=== PATIENT | male | born 1960 | race Caucasian/White ===

== ENCOUNTER 2020-02-21 11:13 | Emergency (ER) | payer OTHER, SELFPAY ==
[2020-02-21 11:16] VITALS: BP 134/102; PULSE 67; RESP 16; TEMP 36.3; O2SAT 100
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
== END 2020-02-21 12:32 | disposition home or self-care (01) ==
PROVIDERS: Emergency Provider Emergency Medicine; PCP Emergency Medicine
DX: M54.12 Radiculopathy, cervical region (principal)
CPT/HCPCS: 99283

== ENCOUNTER 2021-07-18 12:42 | Emergency (ER) | payer MEDICARE, MEDICAID, SELFPAY ==
--- NOTE | ~2021-07-18 | CT_ITS ---
EXAMINATION: CT brain wo con DATE: 07/18/2021 17:07 INDICATION: Head injury. TECHNIQUE: Computed tomography (CT) of the head was performed without intravenous contrast. The mA wa s adjusted according to patient size. Iterative reconstruction technique was employed. The dose-lengt h product was 529.67 mGy-cm. COMPARISON: Head CT 01/31/2016 FINDINGS: There is no intracranial hemorrhage, acute infarction, or abnormal intracranial mass lesion . The ventricles are normal in size. There is an old blowout fracture of medial wall of left orbit. T here is mucosal thickening in the paranasal sinuses. The mastoid air cells are normal. IMPRESSION: 1. Normal brain. Reviewed, dictated and finalized at location A. IMPRESSION: 1. Normal brain.
--- NOTE | ~2021-07-18 | CT_ITS ---
EXAMINATION: CT abdomen pelvis w con DATE: 07/18/2021 17:10 INDICATION: Left flank pain. Right back pain. TECHNIQUE: Computed tomography (CT) of the abdomen and pelvis was performed with 100 mL Omnipaque 350 intravenous contrast. Automated exposure control and iterative reconstruction technique were employe d. The dose-length product was 260.89 mGy-cm. COMPARISON: CT abdomen and pelvis 09/17/2012 FINDINGS: The visualized portions of the lung bases demonstrate mild atelectasis. No pleural effusion . The heart size is normal. No pericardial effusion. The liver is normal. Calcifications in the splee n are consistent with old granulomatous disease. The gallbladder, pancreas, adrenal glands are normal . There are cysts in the kidneys measuring up to 5 mm on the left. The prostate is mildly enlarged. T here are no dilated loops of bowel. The appendix is normal. There are no pathologically enlarged lymp h nodes. There is no free intraperitoneal fluid. There is right and screw fixation of right femur. Th ere is severe lumbar spondylosis. There is a chronic compression fracture of T11. There are old heale d bilateral rib fractures. IMPRESSION: 1. No specific etiology for the patient's symptoms. Reviewed, dictated and finalized at location A.
[2021-07-18 12:47] VITALS: BP 126/91; PULSE 73; RESP 20; TEMP 36.3; O2SAT 100
[2021-07-18 15:13] VITALS: BP 149/99; PULSE 71; RESP 20; O2SAT 99
[2021-07-18 15:44] LABS: Basophils Absolute Auto 0.1 K/mm3 (0.0-0.1); Eosinophils Absolute Auto 0.3 K/mm3 (0-0.3); Eosinophils Percent Auto 2.5 % (0-4.4); Hematocrit 46.7 % (42.0-52.0); Hemoglobin 15.5 g/dL (14.0-18.0); Immature Granulocyte Absolute 0.03 K/mm3 (0.00-0.031); Immature Granulocyte Percent A 0.3 % (0-0.5); Lymphocytes Absolute Auto 2.26 K/mm3 (0.9-3.2); Lymphocytes Percent Auto 22.6 % (18.3-44.2); Mean Corpuscular HGB Conc 33.2 g/dl (32-36); Mean Corpuscular Hemoglobin 32.1 pg (26-34); Mean Corpuscular Volume 96.7 fl (80-100); Mean Platelet Volume 9.8 fl (7.4-10.4); Monocytes Absolute Auto 0.6 K/mm3 (0.1-0.6); Neutrophils Absolute Auto 6.8 K/mm3 (1.3-6.7); Neutrophils Percent Auto 67.6 % (45.5-73.1); Platelet Count Result 324 k/mm3 (150-375); Red Blood Count 4.83 M/mm3 (4.6-6.20); Red Cell Distribution Width 12.9 % (11.5-14.5)
[2021-07-18 15:55] LABS: Partial Thromboplastin Time 31.7 SECONDS (22.3-36.8)
[2021-07-18 15:57] LABS: Alanine Aminotransferase 18 U/L (4-50); Albumin Level 4.9 g/dL (3.5-5.1); Alkaline Phosphatase 115 U/L (38-126); Anion Gap 6 mmol/L (8-16); Aspartate Amino Transferase 31 U/L (17-59); Bilirubin,Total 0.5 mg/dL (0.2-1.3); Blood Urea Nitrogen 11 mg/dL (9-20); Calcium 9.6 mg/dL (8.4-10.2); Carbon Dioxide 31 mmol/L (22-30); Chloride 101 mmol/L (98-107); Estimated CRCL calculation 54 ml/min; Estimated Glomerular Filt Rate > 60; Glucose 99 mg/dL (65-110); Potassium 4.7 mmol/L (3.4-5.0); Sodium 138 mmol/L (137-145)
--- NOTE | 2021-07-18 16:38 | ED.BACK ---
HPI - Back Pain/Injury General Chief Complaint: Back Pain/Injury Stated Complaint: back pain Time Seen by Provider: 07/18/21 15:27 Source: patient Mode of arrival: ambulatory Limitations: no limitations History of Present Illness HPI Narrative: Patient is a 61-year-old male who presents the ED with report of mid back pain. Patient reports he was kicked off of a horse 3 weeks ago. He states he landed on his left side. He did hit his head but denies losing consciousness. He reports having pain in his left mid to lower back since then. His sister is a medical professional and had prescribed him a muscle relaxer which he has been taking at night with relief of his pain. The pain has persisted however over the past 3 weeks which prompted him to come to the ED today. He denies any other symptoms, fever, chills, abdominal pain, nausea, vomiting, bowel or bladder incontinence, saddle anesthesia, weakness in his legs, focal weakness, headache, dizziness, vision changes, chest pain, shortness of breath. Related Data Allergies Allergy/AdvReac Type Severity Reaction Status Date / Time No Known Allergies Allergy Verified 07/18/21 15:15 Review of Systems Review of Systems: CONSTITUTIONAL: Denies fever, chills, or sweats. EYES: Denies visual changes. CARDIOVASCULAR: Denies chest pain. RESPIRATORY: Denies cough or dyspnea. GASTROINTESTINAL: Denies abdominal pain, nausea, vomiting, incontinence, rectal bleeding, or diarrhea. GENITOURINARY: Denies dysuria, incontinence, or hematuria. MUSCULOSKELETAL: Reports L mid to lower back pain. Denies joint pain. NEUROLOGIC: Denies dizziness, headache, numbness, tingling, or weakness. All systems reviewed & are unremarkable except as noted in HPI and below PMFSH Past Medical History Medical History (Updated 07/18/21 @ 20:03 by Monica Lovelace PA-C) History of rib fracture Surgical History Surgical History (Updated 07/18/21 @ 20:03 by Monica Lovelace PA-C) History of hip surgery Family History Family History (Updated 08/11/12 @ 11:11 by DOCTOR UNKNOWN) Father Patient's father is in good health Other Diabetes mellitus Family history of arthritis Family history of gout Family history of heart disease in male family member before age 55 Social History Social History (Updated 07/18/21 @ 20:03 by KORINA Byrd Smoking status: Current every day smoker Alcohol intake: current Exam Narrative: GENERAL: Well appearing, well-nourished, non-toxic, in no acute distress. HEAD: Normocephalic, atraumatic. No scalp tenderness to palpation. EYES: PERRL/EOMI, conjunctivae clear bilaterally. NECK: Supple. No adenopathy, no masses. No midline cervical spinal tenderness. RESPIRATORY: Airway patent, respirations nonlabored. Clear to auscultation bilaterally, no rales, rhonchi, wheezing. CARDIOVASCULAR: Regular rate and rhythm without murmurs, rubs, or gallops. Radial pulses 2+ and equal bilaterally. ABDOMINAL: Soft, nontender, nondistended, no hepatosplenomegaly. Normoactive BS. MUSCULOSKELETAL: Moves all extremities. Strength/ROM intact without gross deformities. No edema. No midline thoracic or lumbar spinal tenderness. No step-offs appreciated. Mild upper lumbar paraspinal muscle tenderness bilaterally just above sacral region, L > R. SKIN: Warm, dry, normal color. No rashes. Lipomas noted to upper lumbar region and left upper shoulder. NEURO: A&O X3. Speech clear. Cranial nerves II-XII grossly intact. Steady gait. No ataxic movements. PSYCHIATRIC: Appropriate mood and affect. Normal interaction. Course Vital Signs Vital signs: Vital Signs Temperature 97.4 F L 07/18/21 12:47 Pulse Rate 73 07/18/21 12:47 Respiratory Rate 20 07/18/21 12:47 Blood Pressure 126/91 H 07/18/21 12:47 Pulse Oximetry 100 07/18/21 12:47 Temperature 97.4 F L 07/18/21 12:47 Pulse Rate 78 07/18/21 17:41 Respiratory Rate 19 07/18/21 17:41 Blood Pressure 157/95 H 07/18/21 17
[2021-07-18 17:41] VITALS: BP 157/95; PULSE 78; RESP 19; O2SAT 100
[2021-07-18] MEDS: KETOROLAC 30 MG/ML VIAL (*BKC) IV PUSH (17:41)
== END 2021-07-18 18:21 | disposition home or self-care (01) ==
PROVIDERS: Emergency Medicine; Emergency Provider Emergency Medicine; PCP Emergency Medicine
DX: S29.9XXA Unspecified injury of thorax, initial encounter (principal); F17.200 Nicotine dependence, unspecified, uncomplicated; V80.010A Animal-rider injured by fall from or being thrown from horse in noncollision accident, initial encounter
CPT/HCPCS: 36415; 70450; 74177; 80053; 85025; 85610; 85730; 96374; 99284; J1885; Q9967

== ENCOUNTER → 2022-04-03 10:05 | Outpatient (CLI) | payer MEDICARE, MEDICAID, SELFPAY ==
--- NOTE | ~2022-04-03 | MR_ITS ---
MRI of the lumbar spine Clinical History: Lumbar radiculopathy Technique: Axial T2-weighted images, and sagittal T1-weighted, T2-weighted, and T2 fat-sat images wer e acquired. Findings: No fracture or subluxation identified. Vertebral bodies maintain normal height and alignmen t. Mild reactive marrow signal changes are present in the L4 and L5 vertebral bodies due to underlyin g degenerative disc disease. There is severe degenerative disc narrowing at L4-L5 and L5-S1. At L1-L2, there is no disc bulge or herniation. There is facet arthropathy. No spinal canal stenosis or neural foraminal narrowing. At L2-L3, there is diffuse disc bulge with facet arthropathy, which contribute to moderate to severe thecal sac compression/spinal canal stenosis. There is mild bilateral neural foraminal narrowing. At L3-L4, there is disc bulge and facet arthropathy. There is minimal central canal stenosis. There i s moderate bilateral neural foraminal narrowing. At L4-L5, disc bulge and facet arthropathy result in severe spinal canal stenosis/thecal sac compress ion. There is severe right neural foraminal compromise and moderate to severe left neural foraminal c ompromise. At L5-S1, disc bulge and facet arthropathy contribute to severe central canal stenosis/thecal sac com pression. There is severe bilateral neural foraminal narrowing. Paravertebral soft tissues are unremarkable. Impression: Severe degenerative spondylosis, as detailed above. There is severe thecal sac compression at L4-L5 a nd L5-S1, with moderate to severe thecal sac compression L2-L3. Multilevel advanced neural foraminal narrowing, as detailed above. Reviewed, dictated and finalized at [facility]. 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 There is severe thecal sac compression at L4-L5 and L5-S1, with moderate to severe thecal sac compression L2-L3. Multilevel advanced neural foraminal narrowing, as detailed above.
== END ==
PROVIDERS: PCP Emergency Medicine
DX: M47.26 Other spondylosis with radiculopathy, lumbar region (principal)
CPT/HCPCS: 72148

== ENCOUNTER → 2022-04-04 11:25 | Outpatient (CLI) | payer MEDICARE, MEDICAID, SELFPAY ==
--- NOTE | ~2022-04-04 | XR_ITS ---
XR lumbar spine min 4V DATE: 04/04/2022 12:22 INDICATION: Radiculopathy, lumbar region TECHNIQUE: Standing AP, lateral and coned lumbosacral views. Standing flexion and extension lateral v iews. COMPARISON: None FINDINGS: There is mild dextro scoliosis of the lower thoracic and lumbar spine. There is degenerative changes at the apophyseal joints of the lower lumbar and lumbosacral area with associated minimal grade 1 anterolisthesis at L5-S1. There is severe degenerative disc disease at L4-5 and L5-S1. Remaining lumbar interspaces are well pr eserved. No fracture or bone destruction is evident. The included lower thoracic and lumbar pedicles are intac t. No instability of the lumbar spine on flexion or extension. The sacroiliac joints are intact. IMPRESSION: Severe degenerative disc disease at L4-5 and L5-S1 Minimal grade 1 anterolisthesis at L5-S1 due to degenerative change at the apophyseal joints Reviewed, dictated and finalized at location B. ME WORKER IMPRESSION: Severe degenerative disc disease at L4-5 and L5-S1 Minimal grade 1 anterolisthesis at L5-S1 due to degenerative change at the apop hyseal joints
== END ==
PROVIDERS: PCP Emergency Medicine
DX: M54.16 Radiculopathy, lumbar region (principal); M51.36 Other intervertebral disc degeneration, lumbar region; M51.37 Other intervertebral disc degeneration, lumbosacral region
CPT/HCPCS: 72110

== ENCOUNTER 2022-05-06 11:00 | Emergency (ER) | payer MEDICARE, MEDICAID, SELFPAY ==
--- NOTE | ~2022-05-06 | CT_ITS ---
EXAMINATION: CT abdomen pelvis w con DATE: 05/06/2022 15:51 INDICATION: Intermittent hematuria TECHNIQUE: Computed tomography (CT) of the abdomen and pelvis was performed with 100 cc Omnipaque 350 intravenous contrast. The dose-length product was 307.71 mGy-cm. Automated exposure control and iterative reconstruction technique were employed. COMPARISON: CT dated 07/18/2021. FINDINGS: Lung bases are unremarkable. Heart size normal. No significant pleural or pericardial effus ion. Small fat-containing umbilical hernia. Bladder wall is mildly thickened. Nonobstructive bowel ga s pattern. Moderate colonic fecal loading. There are small subcentimeter hypodensities of the liver, most likely benign, although too small to c haracterize. There are calcified granulomas of the spleen. The pancreas, adrenal glands are unremarka ble. There are small subcentimeter hypodensities of the kidneys, too small to characterize. Gallbladd er is present. No free air or free fluid. No significant vascular abnormality. No lymphadenopathy. Th ere is an intramedullary lolly in the right femur. Moderate-severe lower lumbar spondylosis. There is g rade 1 spondylolisthesis at L5-S1. IMPRESSION: 1. Mild bladder wall thickening. Consider cystitis in the appropriate clinical setting. Reviewed, dictated and finalized at location L. 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
[2022-05-06 11:07] VITALS: BP 159/93; PULSE 93; RESP 16; TEMP 36.8; O2SAT 97
[2022-05-06 11:43] LABS: Appearance Urine Clear (Clear); Bilirubin Urine Negative (Negative); Blood Urine 2+ (Negative); Color Urine Yellow (Yellow); Glucose Urine UA Negative (Negative); Ketones Urine Negative (Negative); Leukocyte Esterase Ur Negative LEU/UL (Negative); Nitrate Urine Negative (Negative); Protein Urine Negative (Negative); Specific Grav Ur <= 1.005 (1.001-1.035); Urobilinogen Urine 0.2 mg/dL (<2.0)
[2022-05-06 11:49] LABS: Bacteria Urine Trace /hpf; Mucus Urine Rare /lpf; RBC Urine 0-2 /hpf (0-2); WBC Urine 0-3 /hpf
[2022-05-06 11:54] LABS: Add Urine Microscopic? YES
[2022-05-06 14:36] VITALS: BP 142/83; PULSE 84; RESP 18; TEMP 36.8; O2SAT 100
--- NOTE | 2022-05-06 15:03 | ED.MALEGU ---
HPI - Male Genitourinary General Chief complaint: Urogenital-Male Stated complaint: blood in urine Time Seen by Provider: 05/06/22 14:47 Source: patient Mode of arrival: ambulatory Limitations: no limitations History of Present Illness HPI Narrative: 62 years old white male presented to the ED by private car complaining of intermittent hematuria. He denies any fever, chills, nausea, vomiting, abdominal pain, dysuria or similar symptoms. History of chronic back pain, epidural shot 11 days ago. Related Data Allergies Allergy/AdvReac Type Severity Reaction Status Date / Time No Known Allergies Allergy Verified 05/06/22 14:40 Review of Systems Review of Systems: All systems reviewed & are unremarkable except as noted in HPI and below PMFSH Past Medical History Medical History History of rib fracture Surgical History Surgical History History of hip surgery Family History Family History Father Patient's father is in good health Other Diabetes mellitus Family history of arthritis Family history of gout Family history of heart disease in male family member before age 55 Social History Social History Smoking status: Current every day smoker Alcohol intake: current Exam Narrative: General appearance: Well-developed, well-nourished Skin: Normal color Head: Normocephalic, nontraumatic Eyes: Clear conjunctiva ENT: Oropharynx normal, ears normal, nose normal Neck: Supple, nontender Chest and respiratory: Airway patent, no respiratory distress, no accessory muscle use Heart: Regular rate/rhythm Abdomen: Soft, nontender, no organomegaly, quiet bowel sounds, distended abdomen Vascular: Normal peripheral pulses, normal capillary refill. Musculoskeletal: Normal range of motion, nontender back Neurologic: Alert and oriented ?3, CAE ENGINEER is normal as tested, no gross motor deficit Course Reevaluation(s) Reevaluation #1: Patient is still asymptomatic, would like to have medicine for high blood pressure. I plan to start him on losartan 50 mg once a day until he see his family physician. Date: 05/06/22 Time: 17:21 Vital Signs Vital signs: Vital Signs Temperature 36.8 C 05/06/22 11:07 Pulse Rate 93 05/06/22 11:07 Respiratory Rate 16 05/06/22 11:07 Blood Pressure 159/93 H 05/06/22 11:07 Pulse Oximetry 97 05/06/22 11:07 Temperature 36.8 C 05/06/22 14:36 Pulse Rate 84 05/06/22 14:36 Respiratory Rate 18 05/06/22 14:36 Blood Pressure 142/83 H 05/06/22 14:36 Pulse Oximetry 100 05/06/22 14:36 Oxygen Delivery Room Air 05/06/22 14:36 MDM - Male Genitourinary MDM Narrative Medical decision making narrative: Patient presents with the blood in the urine for a while, also been having high blood pressure for long time but unable to afford to get blood pressure medicine, presented to the ED with blood in the urine otherwise asymptomatic. Physical examination is unremarkable. Urinary tract infection, kidney stone, malignancy, coagulopathy are my concern Labs, UA, CT abdomen pelvis with IV contrast ordered. Blood work-up showed no acute abnormality, urine analysis showed 2+ blood, CT abdomen pelvis showed abnormality consistent with acute cystitis which is my concern at this time. Cipro 500 twice daily, losartan prescription ordered. The pt was discharged to home.the pt,s condition upon discharge was fair,education was provided to the pt in reference to the final impression,discharge study results,treatment,p
[2022-05-06 15:30] LABS: Basophils Absolute Auto 0.1 K/mm3 (0.0-0.1); Basophils Percent Auto 0.8 % (0.2-1.2); Eosinophils Absolute Auto 0.3 K/mm3 (0-0.3); Eosinophils Percent Auto 2.5 % (0-4.4); Hematocrit 47.9 % (42.0-52.0); Hemoglobin 15.8 g/dL (14.0-18.0); Immature Granulocyte Absolute 0.04 K/mm3 (0.00-0.031); Immature Granulocyte Percent A 0.3 % (0-0.5); Lymphocytes Absolute Auto 3.09 K/mm3 (0.9-3.2); Mean Corpuscular Hemoglobin 31.2 pg (26-34); Mean Corpuscular Volume 94.5 fl (80-100); Mean Platelet Volume 9.4 fl (7.4-10.4); Monocytes Absolute Auto 0.7 K/mm3 (0.1-0.6); Monocytes Percent Auto 5.9 % (2.6-8.5); Neutrophils Absolute Auto 7.3 K/mm3 (1.3-6.7); Neutrophils Percent Auto 63.5 % (45.5-73.1); Platelet Count Result 326 k/mm3 (150-375); Red Blood Count 5.07 M/mm3 (4.6-6.20); Red Cell Distribution Width 13.4 % (11.5-14.5); White Blood Count 11.5 K/mm3 (4.5-10.0)
[2022-05-06 15:38] LABS: Prothrombin Time 13.2 Seconds (11.1-14.7)
[2022-05-06 15:39] LABS: Alanine Aminotransferase 50 U/L (6-50); Albumin Level 4.6 g/dL (3.5-5.1); Alkaline Phosphatase 75 U/L (38-126); Anion Gap 3 mmol/L (8-16); Aspartate Amino Transferase 41 U/L (17-59); Bilirubin,Total 0.6 mg/dL (0.2-1.3); Blood Urea Nitrogen 14 mg/dL (9-20); Calcium 9.1 mg/dL (8.4-10.2); Carbon Dioxide 33 mmol/L (22-30); Chloride 98 mmol/L (98-107); Estimated CRCL calculation 54 ml/min; Estimated Glomerular Filt Rate > 60; Glucose 95 mg/dL (65-110); Potassium 4.5 mmol/L (3.4-5.0); Sodium 134 mmol/L (137-145)
[2022-05-06 18:02] VITALS: BP 120/89; PULSE 74; RESP 16; TEMP 36.7; O2SAT 99
== END 2022-05-06 18:02 | disposition home or self-care (01) ==
PROVIDERS: Emergency Medicine; Emergency Provider Emergency Medicine
DX: N30.90 Cystitis, unspecified without hematuria (principal); I10 Essential (primary) hypertension; F17.200 Nicotine dependence, unspecified, uncomplicated
CPT/HCPCS: 36415; 74177; 80053; 81001; 85025; 85610; 85730; 99284; Q9967

== ENCOUNTER → 2022-06-17 09:55 | Outpatient (CLI) | payer MEDICARE, MEDICAID, SELFPAY ==
--- NOTE | ~2022-06-17 | XR_ITS ---
EXAMINATION: XR lumbar spine min 4V DATE: 06/17/2022 11:00 INDICATION: Spinal stenosis, lumbar region without neurogenic claudication. TECHNIQUE: 5 views of lumbar spine standing including flexion and extension views were obtained. COMPARISON: Lumbar spine radiograph 04/04/2022 FINDINGS: There is 4 mm anterolisthesis of L5 on S1. There is 7 degrees dextrocurvature of thoracolum bar spine. There is no abnormal motion with flexion or extension. There is mild chronic anterior wedg ing of T11-L1 vertebral bodies. There is mildly decreased disc height at L2-L3 and L3-L4 and severely decreased disc height at L4-L5 and L5-S1. There is severe facet joint osteoarthritis in lower lumbar spine. IMPRESSION: 1. Severe lumbar spondylosis. Reviewed, dictated and finalized at location A.
--- NOTE | ~2022-06-17 | MR_ITS ---
EXAMINATION: MR cervical spine wo con DATE: 06/17/2022 10:32 INDICATION: Neck pain. Bilateral arm tingling. TECHNIQUE: Magnetic resonance imaging (MRI) of the cervical spine was performed without intravenous c ontrast. COMPARISON: None FINDINGS: There is 7 degrees dextrocurvature of cervicothoracic spine. There is 2 mm retrolisthesis o f C4 on C5 and C5 on C6, 2 mm anterolisthesis of C6 on C7, and 4 mm anterolisthesis of C7 on T1. Ther e is trace. Vertebral body heights are normal. There is severely decreased disc height at C4-C5 and C 5-C6, mildly decreased disc height at C6-C7, and moderately decreased disc height at C7-T1. There is increased T2-weighted signal intensity in the spinal cord at C6-C7, consistent with myelomalacia. The following disc levels are specifically discussed: C2-C3: The disc does not extend beyond the endplate margin. There is no uncovertebral joint osteoarth ritis. There is moderate bilateral facet joint osteoarthritis. There is mild bilateral neural foramin al stenosis. There is no central canal stenosis. C3-C4: The disc does not extend beyond the endplate margin. There is mild bilateral uncovertebral slade nt osteoarthritis. There is severe bilateral facet joint osteoarthritis. There is moderate right and mild left neural foraminal stenosis. There is no central canal stenosis. C4-C5: The disc is bulging. There is severe bilateral uncovertebral joint osteoarthritis. There is se angelique bilateral facet joint osteoarthritis. There is moderate right and severe left neural foraminal s tenosis. There is mild central canal stenosis. C5-C6: The disc is bulging. There is severe bilateral uncovertebral joint osteoarthritis. There is mo derate right and severe left facet joint osteoarthritis. There is moderate right and severe left neur al foraminal stenosis. There is mild central canal stenosis. C6-C7: There is a central extrusion. There is moderate bilateral uncovertebral joint osteoarthritis. There is severe bilateral facet joint osteoarthritis. There is moderate bilateral neural foraminal st enosis. There is severe central canal stenosis with ventral and dorsal indentation of the spinal cord and increased signal in the cord. C7-T1: There is a central extrusion. There is no uncovertebral joint osteoarthritis. There is severe bilateral facet joint osteoarthritis. There is mild right and moderate left neural foraminal stenosis . There is mild central canal stenosis. IMPRESSION: 1. Myelomalacia at C6-C7. 2. Severe cervical spondylosis. Reviewed, dictated and finalized at location A.
== END ==
PROVIDERS: PCP Neurological Surgery; Visit Provider Neurological Surgery
DX: R29.898 Other symptoms and signs involving the musculoskeletal system (principal); M48.061 Spinal stenosis, lumbar region without neurogenic claudication; M47.816 Spondylosis without myelopathy or radiculopathy, lumbar region; M47.812 Spondylosis without myelopathy or radiculopathy, cervical region; G95.89 Other specified diseases of spinal cord
CPT/HCPCS: 72110; 72141

== ENCOUNTER 2023-12-17 10:06 | Outpatient (CLI) | payer MEDICARE, MEDICAID, SELFPAY ==
--- NOTE | ~2023-12-17 | MR_ITS ---
MRI of the left shoulder Technique: Axial proton-density fat-sat images, coronal proton density fat-sat and T2 fat-sat images, and sagittal T1-weighted and T2 fat-sat images were acquired. Clinical History: Pain Findings: There is minimal AC joint degenerative change. Coracoclavicular, coracoacromial, and coraco humeral ligaments appear intact. There are complete, full-thickness tears involving the entirety of the supraspinatus and infraspinatu s tendons. Fluid-filled gap measures approximately 4.4 x 4.0 cm in extent. Subscapularis tendon is in tact with mild to moderate tendinosis. Tendon of the long head of the biceps is intact. There is probable superior labral tear. Questionable extension to the anterosuperior portion. Inferior glenohumeral ligament is intact. There is small amount of glenohumeral joint fluid, passing through the rotator cuff defect into the subacromial/subdeltoid bursa. No degenerative change of the glenohumeral joint. Probable mild to moderate fatty atrophy infraspinatus muscle belly. Impression: Complete, full-thickness tears involving entirety of the supraspinatus and infraspinatus tendons, as detailed above. Probable associated mild to moderate fatty atrophy of the infraspinatus muscle belly. Suspected degenerative tear of the superior labrum extending to the anterosuperior portion. Reviewed, dictated and finalized at [facility]. Impression: Complete, full-thickness tears involving entirety of the supraspinatus and infr aspinatus tendons, as detailed above. Probable associated mild to moderate fatt y atrophy of the infraspinatus muscle belly. Suspected degenerative tear of the superior labrum extending to the anterosuper ior portion.
== END 2023-12-17 10:07 | disposition home or self-care (01) ==
LOC: MICIMG 10:07
DX: M75.102 Unspecified rotator cuff tear or rupture of left shoulder, not specified as traumatic (principal)
CPT/HCPCS: 73221

== ENCOUNTER 2023-12-17 10:09 | Outpatient (CLI) | payer MEDICARE, MEDICAID, SELFPAY ==
--- NOTE | ~2023-12-17 | MR_ITS ---
MRI of the lumbar spine Clinical History: Radiculopathy Technique: Axial T2-weighted images, and sagittal T1-weighted, T2-weighted, and T2 fat-sat images wer e acquired. Findings: No fracture evident. There is minimal grade 1 retrolisthesis of L3 over L4. There is minima l grade 1 anterolisthesis of L5 over S1. No suspicious bone marrow signal abnormality seen. At L1-L2, there is no significant disc bulge or herniation. There is advanced facet arthropathy. No c entral canal stenosis or neural foraminal narrowing. At L2-L3, there is moderate degenerative disc 9. There is diffuse disc bulge and severe facet arthrop athy, resulting in severe spinal canal stenosis/thecal sac compression. There is moderate bilateral n eural foraminal narrowing. At L3-L4, there is moderate to advanced degenerative disc narrowing. Diffuse disc bulge and severe fa cet arthropathy contribute to severe spinal canal stenosis/thecal sac compression. There is severe ri ght neural foraminal narrowing, and moderate to severe left neural foraminal narrowing. At L4-L5, there is advanced degenerative disc narrowing. There is diffuse disc bulge with severe face t arthropathy. There is prior posterior decompression. There is minimal central canal stenosis. There is severe right neural foraminal narrowing, and moderate to severe left neural foraminal narrowing. At L5-S1, there is severe degenerative disc narrowing. There is disc bulge and severe facet arthropat hy, with probable moderate central canal stenosis despite probable prior posterior decompression. The re is moderate to severe bilateral neural foraminal narrowing. Paravertebral soft tissues are unremarkable. Impression: Severe degenerative spondylosis from L2 through S1, as detailed above. Reviewed, dictated and finalized at location M. Impression: Severe degenerative spondylosis from L2 through S1, as detailed above.
== END 2023-12-17 10:10 | disposition home or self-care (01) ==
LOC: MICIMG 10:10
PROVIDERS: PCP Nurse Practitioner Family; Visit Provider Nurse Practitioner Family
DX: M47.26 Other spondylosis with radiculopathy, lumbar region (principal)
CPT/HCPCS: 72148

== ENCOUNTER 2024-01-30 23:55 | Emergency (ER) | payer MEDICARE, MEDICAID, SELFPAY ==
--- NOTE | ~2024-01-30 | CT_ITS ---
Non-contrast CT scan of the Abdomen and Pelvis Clinical indication: Abdominal pain Technique: 2.5 mm axial scans were obtained through the abdomen and pelvis without intravenous or or al contrast. Dose reduction technique was used on this scan by utilizing automated exposure control a nd iterative reconstruction technique. The dose-length product (DLP) was 198.96 mGy-cm. COMPARISON: 05/06/2022 Findings: Images through the lung bases reveal right basilar atelectatic change. There is no evidence of renal or ureteral calculi. The kidneys and the ureters are nondilated. The liver, spleen, pancreas, gallbladder, and adrenals appear normal. There are mild atherosclerotic calcifications of the aorta. There is no evidence of bowel obstruction. Small fat-containing umbilical hernia noted. Images through the pelvis were performed. There is no evidence of ascites or lymphadenopathy. Urinary bladder unremarkable. No pelvic mass seen. No ascites. Impression: No acute abnormalities. Small fat-containing umbilical hernia. Reviewed, dictated and finalized at [facility]. T SEWER Impression: No acute abnormalities. Small fat-containing umbilical hernia.
[2024-01-31 00:33] VITALS: BP 146/102; PULSE 87; RESP 20; TEMP 36.7; O2SAT 100
[2024-01-31 03:39] VITALS: BP 165/91; PULSE 93; RESP 21; O2SAT 96
--- NOTE | 2024-01-31 03:40 | PC.NURSE ---
this patient has been moaning and asking for something for pain. RN informed patient that MD will be in.
--- NOTE | 2024-01-31 04:28 | ECG_ITS ---
Test Date: 2024-01-31 04:58:50 Measurements Intervals Walker Rate: 88 P: 59 AL: 140 QRS: 37 QRSD: 97 T: 42 QT: 363 QTc: 439 Interpretive Statements SINUS RHYTHM BASELINE ARTIFACT- I, III NORMAL ECG No previous ECG available for comparison Electronically Signed On 01-31-2024 07:54:28 CREDIT RISK REVIEW OFFICER by Ced Pulido D.O.
--- NOTE | 2024-01-31 04:39 | ED_ITS ---
HPI - General Adult General Chief complaint: Abdominal Pain <Rex Sue MD - Last Filed: 01/31/24 04:43> Stated complaint: abdominal pain x3 days <Rex Sue MD - Last Filed: 01/31/24 04:43> Time Seen by Provider: 01/31/24 04:18 <Rex Sue MD - Last Filed: 01/31/24 04:43> Source: RN notes reviewed and old records reviewed <Blank Osorio MD - Last Filed: 01/31/24 17:10> History of Present Illness HPI narrative: Presents 63-year-old gentleman presents emergency department chief complaint abdominal patient reports for the last 3 days has been having pain in the epigastric and right upper quadrant area patient states abdomen feels as though it is distended. The patient reports that he has had a normal bowel movement today. The patient denies fever denies vomiting. Patient reports no prior intra-abdominal surgeries <Rex Sue MD - Last Filed: 01/31/24 04:43> Related Data Allergies/adverse reactions: Allergies Allergy/AdvReac Type Severity Reaction Status Date / Time No Known Allergies Allergy Verified 06/11/23 10:58 <Rex Sue MD - Last Filed: 01/31/24 04:43> Review of Systems Review of Systems: A 10 system review of systems was completed on the patient and is negative except for what is stated in the HPI. Nursing and ancillary documentation was reviewed. <Rex Sue MD - Last Filed: 01/31/24 04:43> [facility] Past Medical History Medical History: Medical History History of rib fracture <Rex Sue MD - Last Filed: 01/31/24 04:43> Surgical History Surgical History: Surgical History History of fusion of cervical spine 07/17/2022 cervical decompression and fusion C2-T2 [facility], no complications History of hip surgery <Rex Sue MD - Last Filed: 01/31/24 04:43> Family History Family History: Family History Father Patient's father is in good health Other Diabetes mellitus Family history of arthritis Family history of gout Family history of heart disease in male family member before age 55 <Rex Sue MD - Last Filed: 01/31/24 04:43> Social History Social History: Social History Smoking status: Current every day smoker Alcohol intake: current Do You Feel Safe in your Home?: Yes Lack of Transportation: No Lack of Food: Sometimes True Current Housing: I Have Housing Concerned About Future Housing: No Difficulty Paying Gas/Electric Bills: YES Difficulty Paying for Meds: No Currently Unemployed: No Education: High School Diploma/GED Difficulty w/ Childcare or Family Care: No <Rex Sue MD - Last Filed: 01/31/24 04:43> Exam Narrative: GENERAL: Well-appearing, well-nourished, and in no acute distress. HEAD: Normocephalic, atraumatic. EYES: PERRLA and EOMI. ENT: Nares clear, no rhinorrhea or epistaxis. Mucous membranes moist. NECK: Supple. CHEST: Clear to auscultation. No respiratory distress. HEART: Regular rate and rhythm. No murmur heard. Normal peripheral pulses. ABDOMEN: Soft, tenderness to palpation in the epigastric and right upper eli drant, nondistended, normal active bowel sounds. EXTREMITIES: Normal range of motion. No edema. SKIN: Warm, dry, no rash. NEURO: No focal deficits. Alert and oriented x3. PSYCH: Normal mood and affect. <Rex Sue MD - Last Filed: 01/31/24 04:43> GI: Rectal Exam: visual inspection normal <Blank Osorio MD - Last Filed: 01/31/24 17:10> Other: heme negative <Blank Osorio MD - Last Filed: 01/31/24 17:10> Course Reevaluation(s) Reevaluation #1: Patient is resting comfortably. He has no complaints. I discussed that his hemoglobin is low. HE denies any blood loss. He denies, chest pain or shortness of breath. He is guaic negative with brown stool I discussed he will need to follow up with PCP. He expresses no concerns or questions about discharge. <Blank Osorio MD - Last Filed: 01/31/24 17:10> Date: 01/31/24 <Blank Osorio MD - Last Filed: 01/31/24 17:10> Time: 10:56 <Blank Osorio MD - Last Filed: 01/31/24 17:10> Vital Signs Vital signs: Vital Signs Temperature 98.1 F 01/31/24 00:33 Pulse Rate 87 01/31/24 00:33 Respiratory Rate 20 01/31/24 00:33 Blood Pressure 146/102 H 01/31/24 00:33 Pulse Oximetry 100 01/31/24 00:33 Temperature 98.9 F 01/31/24 11:15 Pulse Rate 69 01/31/24 11:15 Respiratory Rate 17 01/31/24 11:15 Blood Pressure 121/86 01/31/24 11:15 Pulse Oximetry 100 01/31/24 11:15 <Rex Sue MD - Last Filed: 01/31/24 04:43> Vital Signs Temperature 98.1 F 01/31/24 00:33 Pulse Rate 87 01/31/24 00:33 Respiratory Rate 20 01/31/24 00:33 Blood Pressure 146/102 H 01/31/24 00:33 Pulse Oximetry 100 01/31/24 00:33 Temperature 98.9 F 01/31/24 11:15 Pulse Rate 69 01/31/24 11:15 Respiratory Rate 17 01/31/24 11:15 Blood Pressure 121/86 01/31/24 11:15 Pulse Oximetry 100 01/31/24 11:15 <Blank Osorio MD - Last Filed: 01/31/24 17:10> Medical Decision Making Vital Signs Vital Signs: Vital Signs Temperature 98.1 F 01/31/24 00:33 Pulse Rate 87 01/31/24 00:33 Respiratory Rate 20 01/31/24 00:33 Blood Pressure 146/102 H 01/31/24 00:33 Pulse Oximetry 100 01/31/24 00:33 Temperature 98.9 F 01/31/24 11:15 Pulse Rate 69 01/31/24 11:15 Respiratory Rate 17 01/31/24 11:15 Blood Pressure 121/86 01/31/24 11:15 Pulse Oximetry 100 01/31/24 11:15 <Rex Sue MD - Last Filed: 01/31/24 04:43> Vital Signs Temperature 98.1 F 01/31/24 00:33 Pulse Rate 87 01/31/24 00:33 Respiratory Rate 20 01/31/24 00:33 Blood Pressure 146/102 H 01/31/24 00:33 Pulse Oximetry 100 01/31/24 00:33 Temperature 98.9 F 01/31/24 11:15 Pulse Rate 69 01/31/24 11:15 Respiratory Rate 17 01/31/24 11:15 Blood Pressure 121/86 01/31/24 11:15 Pulse Oximetry 100 01/31/24 11:15 <Blank Osorio MD - Last Filed: 01/31/24 17:10> Lab Data Lab results reviewed: Yes I reviewed the patient's lab results. <Blank Osorio MD - Last Filed: 01/31/24 17:10> Result diagrams: 01/31/24 04:49 01/31/24 07:30 <Rex Sue MD - Last Filed: 01/31/24 04:43> Labs: Lab Results 01/31/24 01/31/24 01/31/24 Range/Units 04:49 04:50 07:30 WBC 13.4 H (4.5-10.0) K/mm3 RBC 4.17 L (4.6-6.20) M/mm3 Hgb 8.8 L D (14.0-18.0) g/dL Hct 32.2 L (42.0-52.0) % MCV 77.2 L (80-100) fl MCH 21.1 L (26-34) pg MCHC 27.3 L (32-36) g/dl RDW 19.9 H (11.5-14.5) % Plt Count 665 H D (150-375) k/mm3 MPV 9.5 (7.4-10.4) fl Immature Gran % (Auto) 0.4 (0-0.5) % Neut % (Auto) 69.2 (45.5-73.1) % Lymph % (Auto) 19.9 (18.3-44.2) % [place] % (Auto) 6.4 (2.6-8.5) % Eos % (Auto) 3.1 (0-4.4) % Baso % (Auto) 1.0 (0.2-1.2) % Lymph # (Auto) 2.66 (0.9-3.2) K/mm3 [place] # (Auto) 0.9 H (0.1-0.6) K/mm3 Eos # (Auto) 0.4 H (0-0.3) K/mm3 Baso # (Auto) 0.1 (0.0-0.1) K/mm3 Abs Immat Gran (auto) 0.05 H (0.00-0.031) K/mm3 Absolute Neuts (auto) 9.3 H (1.3-6.7) K/mm3 Absolute Nucleated RBC 0.000 (0.0-0.012) K/mm3 Nucleated RBC % 0.0 (0.0-0.2) % Platelet Estimate Increased (Adequate) Hypochromasia 1+ Anisocytosis 1+ Schistocytes None seen Sodium 140 (137-145) mmol/L Potassium 4.2 (3.4-5.0) mmol/L Chloride 106 (98-107) mmol/L Carbon Dioxide 26 (22-30) mmol/L Anion Gap 8 (4-12) mmol/L BUN 9 D (9-20) mg/dL Creatinine 1.00 (0.7-1.3) mg/dL Estim Creat Clear Calc 54 ml/min Estimated GFR > 60 (59 - ) Glucose 124 H (65-110) mg/dL Lactic Acid 1.6 (0.7-2.0) mmol/L Calcium 9.6 (8.4-10.2) mg/dL Magnesium 1.7 (1.6-2.3) mg/dL Total Bilirubin 0.3 (0.2-1.3) mg/dL AST 32 (17-59) U/L ALT 22 (6-50) U/L Alkaline Phosphatase 80 (38-126) U/L Troponin I < 0.012 (0.000-0.034) ng/mL Total Protein 7.0 (6.3-8.2) g/dL Albumin 3.8 (3.5-5.1) g/dL Lipase 76 (23-300) U/L Urine Color Yellow (Yellow) Urine Appearance Clear (Clear) Urine pH 6.0 (5.0-9.0) Ur Specific [place] 1.003 (1.001-1.035) Urine Protein Negative (Negative) mg/dL Urine Glucose (UA) Negative (Negative) mg/dL Urine Ketones Negative (Negative) mg/dL Ur Blood (Man) Negative (Negative) Urine Nitrate Negative (Negative) Urine Bilirubin Negative (Negative) Urine Urobilinogen 0.2 (<2.0) mg/dL Leukocyte Esterase Rfl Negative (Negative) LEWIS/UL <Rex Sue MD - Last Filed: 01/31/24 04:43> Lab Results 01/31/24 01/31/24 01/31/24 Range/Units 04:49 04:50 07:30 WBC 13.4 H (4.5-10.0) K/mm3 RBC 4.17 L (4.6-6.20) M/mm3 Hgb 8.8 L D (14.0-18.0) g/dL Hct 32.2 L (42.0-52.0) % MCV 77.2 L (80-100) fl MCH 21.1 L (26-34) pg MCHC 27.3 L (32-36) g/dl RDW 19.9 H (11.5-14.5) % Plt Count 665 H D (150-375) k/mm3 MPV 9.5 (7.4-10.4) fl Immature Gran % (Auto) 0.4 (0-0.5) % Neut % (Auto) 69.2 (45.5-73.1) % Lymph % (Auto) 19.9 (18.3-44.2) % [place] % (Auto) 6.4 (2.6-8.5) % Eos % (Auto) 3.1 (0-4.4) % Baso % (Auto) 1.0 (0.2-1.2) % Lymph # (Auto) 2.66 (0.9-3.2) K/mm3 [place] # (Auto) 0.9 H (0.1-0.6) K/mm3 Eos # (Auto) 0.4 H (0-0.3) K/mm3 Baso # (Auto) 0.1 (0.0-0.1) K/mm3 Abs Immat Gran (auto) 0.05 H (0.00-0.031) K/mm3 Absolute Neuts (auto) 9.3 H (1.3-6.7) K/mm3 Absolute Nucleated RBC 0.000 (0.0-0.012) K/mm3 Nucleated RBC % 0.0 (0.0-0.2) % Platelet Estimate Increased (Adequate) Hypochromasia 1+ Anisocytosis 1+ Schistocytes None seen Sodium 140 (137-145) mmol/L Potassium 4.2 (3.4-5.0) mmol/L Chloride 106 (98-107) mmol/L Carbon Dioxide 26 (22-30) mmol/L Anion Gap 8 (4-12) mmol/L BUN 9 D (9-20) mg/dL Creatinine 1.00 (0.7-1.3) mg/dL Estim Creat Clear Calc 54 ml/min Estimated GFR > 60 (59 - ) Glucose 124 H (65-110) mg/dL Lactic Acid 1.6 (0.7-2.0) mmol/L Calcium 9.6 (8.4-10.2) mg/dL Magnesium 1.7 (1.6-2.3) mg/dL Total Bilirubin 0.3 (0.2-1.3) mg/dL AST 32 (17-59) U/L ALT 22 (6-50) U/L Alkaline Phosphatase 80 (38-126) U/L Troponin I < 0.012 (0.000-0.034) ng/mL Total Protein 7.0 (6.3-8.2) g/dL Albumin 3.8 (3.5-5.1) g/dL Lipase 76 (23-300) U/L Urine Color Yellow (Yellow) Urine Appearance Clear (Clear) Urine pH 6.0 (5.0-9.0) Ur Specific [place] 1.003 (1.001-1.035) Urine Protein Negative (Negative) mg/dL Urine Glucose (UA) Negative (Negative) mg/dL Urine Ketones Negative (Negative) mg/dL Ur Blood (Man) Negative (Negative) Urine Nitrate Negative (Negative) Urine Bilirubin Negative (Negative) Urine Urobilinogen 0.2 (<2.0) mg/dL Leukocyte Esterase Rfl Negative (Negative) LEWIS/UL <Blank Osorio MD - Last Filed: 01/31/24 17:10> Imaging Data Radiologist's impression: ITS Impressions Abdomen/Pelvis CT 01/31/24 10:07 Impression: No acute abnormalities. Small fat-containing umbilical hernia. <Blank Osorio MD - Last Filed: 01/31/24 17:10> Discharge Plan Discharge Clinical Impression: Acute generalized abdominal pain, Anemia <Rex Sue MD - Last Filed: 01/31/24 04:43> Patient Disposition: Home, Self-Care <Rex Sue MD - Last Filed: 01/31/24 04:43> Condition: Stable <Rex Sue MD - Last Filed: 01/31/24 04:43> Instructions: Abdominal Pain (ED), Anemia (ED) <Rex Sue MD - Last Filed: 01/31/24 04:43> Additional Instructions: I Recommend that your follow up with your primary care provider for further evaluation of your anemia. <Rex Sue MD - Last Filed: 01/31/24 04:43> Prescriptions: New ferrous sulfate 325 mg (65 mg iron) tablet,delayed release (DR/EC) 325 mg PO DAILY Qty: 14 0RF omeprazole 20 mg capsule,delayed release(DR/EC) 20 mg PO DAILY Qty: 14 0RF No Action phentermine 37.5 mg tablet 37.5 mg PO DAILY Qty: 30 2RF Rx Instructions: must administer 1-2 hours after breakfast duloxetine 60 mg capsule,delayed release(DR/EC) 60 mg PO DAILY Qty: 30 11RF gabapentin 300 mg capsule 300 mg PO BID Qty: 60 11RF losartan 50 mg tablet 50 mg PO DAILY Qty: 30 11RF Hold Instructions: .Provider Order naproxen 500 mg tablet 500 mg PO BID PRN (Reason: pain) Qty: 60 11RF <Rex Sue MD - Last Filed: 01/31/24 04:43> Follow-up/Referrals: Byron,BLANCA Vásquez-C [Primary Care Provider] - <Rex Sue MD - Last Filed: 01/31/24 04:43>
[2024-01-31] MEDS: PANTOPRAZOLE SODIUM IV 40 MG VIAL IV PUSH (04:44)
[2024-01-31] MEDS: ONDANSETRON INJ 4 MG/2 ML VIAL IV PUSH (04:44)
[2024-01-31] MEDS: MORPHINE SULFATE (*CRX) 4 MG/ML INJ IV PUSH (04:44)
[2024-01-31] MEDS: SODIUM CHLORIDE 0.9% IV 1,000 ML 999 ML IV CONT (04:45)
[2024-01-31 07:16] LABS: Basophils Absolute Auto 0.1 K/mm3 (0.0-0.1); Eosinophils Absolute Auto 0.4 K/mm3 (0-0.3); Eosinophils Percent Auto 3.1 % (0-4.4); Hematocrit 32.2 % (42.0-52.0); Hemoglobin 8.8 g/dL (14.0-18.0); Immature Granulocyte Absolute 0.05 K/mm3 (0.00-0.031); Immature Granulocyte Percent A 0.4 % (0-0.5); Lymphocytes Absolute Auto 2.66 K/mm3 (0.9-3.2); Lymphocytes Percent Auto 19.9 % (18.3-44.2); Mean Corpuscular HGB Conc 27.3 g/dl (32-36); Mean Corpuscular Hemoglobin 21.1 pg (26-34); Mean Corpuscular Volume 77.2 fl (80-100); Mean Platelet Volume 9.5 fl (7.4-10.4); Monocytes Absolute Auto 0.9 K/mm3 (0.1-0.6); Monocytes Percent Auto 6.4 % (2.6-8.5); Neutrophils Absolute Auto 9.3 K/mm3 (1.3-6.7); Neutrophils Percent Auto 69.2 % (45.5-73.1); Platelet Count Result 665 k/mm3 (150-375); Red Blood Count 4.17 M/mm3 (4.6-6.20); Red Cell Distribution Width 19.9 % (11.5-14.5); White Blood Count 13.4 K/mm3 (4.5-10.0)
[2024-01-31 07:18] LABS: Add Urine Microscopic? NO; Appearance Urine Clear (Clear); Bilirubin Urine Negative (Negative); Blood Urine Negative (Negative); Color Urine Yellow (Yellow); Glucose Urine UA Negative (Negative); Ketones Urine Negative (Negative); Leukocyte Esterase Ur Negative LEU/UL (Negative); Nitrate Urine Negative (Negative); Protein Urine Negative (Negative); Specific Grav Ur 1.003 (1.001-1.035); Urobilinogen Urine 0.2 mg/dL (<2.0)
[2024-01-31 07:24] LABS: Lactic Acid Reflex 1.6 mmol/L (0.7-2.0)
[2024-01-31 07:37] LABS: Anisocytosis 1+; Hypochromasia 1+; Platelet Estimate Increased (Adequate); Schistocytes None Seen
[2024-01-31 07:47] LABS: Alanine Aminotransferase 22 U/L (6-50); Albumin Level 3.8 g/dL (3.5-5.1); Alkaline Phosphatase 80 U/L (38-126); Anion Gap 8 mmol/L (4-12); Aspartate Amino Transferase 32 U/L (17-59); Bilirubin,Total 0.3 mg/dL (0.2-1.3); Blood Urea Nitrogen 9 mg/dL (9-20); Calcium 9.6 mg/dL (8.4-10.2); Carbon Dioxide 26 mmol/L (22-30); Chloride 106 mmol/L (98-107); Estimated CRCL calculation 54 ml/min; Estimated Glomerular Filt Rate > 60; Glucose 124 mg/dL (65-110); Lipase 76 U/L (23-300); Magnesium 1.7 mg/dL (1.6-2.3); Potassium 4.2 mmol/L (3.4-5.0); Sodium 140 mmol/L (137-145)
[2024-01-31 08:16] LABS: Troponin I < 0.012 ng/mL (0.000-0.034)
--- NOTE | 2024-01-31 08:23 | PC.NURSE ---
Per CT, patient is refusing IV contrase dye. EDP made aware.
[2024-01-31 11:15] VITALS: BP 121/86; PULSE 69; RESP 17; TEMP 37.2; O2SAT 100
== END 2024-01-31 11:17 | disposition home or self-care (01) ==
PROVIDERS: Emergency Provider Emergency Medicine; PCP Nurse Practitioner Family
DX: R10.84 Generalized abdominal pain (principal); D64.9 Anemia, unspecified; F17.200 Nicotine dependence, unspecified, uncomplicated; Z98.1 Arthrodesis status; Z79.899 Other long term (current) drug therapy; K42.9 Umbilical hernia without obstruction or gangrene
CPT/HCPCS: 36415; 74176; 80053; 81003; 83605; 83690; 83735; 84484; 85025; 93005; 96361; 96374; 96375; 99284; J2270; J2405; J2470; J7030

== ENCOUNTER 2024-05-20 12:13 | Emergency (ER) | payer MEDICARE, MEDICAID, SELFPAY ==
[2024-05-20 12:25] VITALS: BP 145/78; PULSE 82; RESP 16; TEMP 36.6; O2SAT 94
--- NOTE | 2024-05-20 12:31 | ED_ITS ---
HPI - Skin/Abscess/Foreign Bdy General Chief complaint: Skin/Abscess/Foreign Body Stated complaint: rash on face ,HBP Time Seen by Provider: 05/20/24 12:16 Source: patient Mode of arrival: ambulatory Limitations: no limitations History of Present Illness HPI narrative: Hao is a 64-year-old male patient presenting to the clinic today complaints of high blood pressure and a rash on his face. He reports he developed a rash on his face today. No new changes in soaps, shampoos, lotions, detergents, or medications. States he did have 5 [place] sausages yesterday. Feels as though he has got some facial swelling with a red rash he also has reported high blood pressure this morning. Blood pressure was 156/83 at home. He takes losartan and hydrochlorothiazide Related Data Home Medications ?Medication ?Instructions ?Recorded ?Confirmed ?Last Taken ?Type docusate sodium 100 mg capsule mg PO 03/18/24 03/18/24 Unknown History tramadol 50 mg tablet mg PO 03/18/24 03/18/24 Unknown History Allergies Allergy/AdvReac Type Severity Reaction Status Date / Time No Known Allergies Allergy Verified 05/20/24 12:38 Review of Systems Review of Systems: Pertinent positives per HPI. Patient denies any fever, chills, headache, visual changes, dizziness, cough, shortness of breath, chest pain, palpitations, nausea, vomiting, diarrhea, constipation, abdominal pain, or any urinary issues. [facility] Past Medical History Medical History (Updated 05/20/24 @ 12:47 by Freeman Gant APRN) History of rib fracture Surgical History Surgical History History of arthroplasty of left shoulder (02/2024) Reverse arthroplasty History of fusion of cervical spine 07/17/2022 cervical decompression and fusion C2-T2 [facility], no complications History of hip surgery Family History Family History Father Patient's father is in good health Other Diabetes mellitus Family history of arthritis Family history of gout Family history of heart disease in male family member before age 55 Social History Social History (Reviewed 05/20/24 @ 13:12 by WINTER Keating Smoking status: Current every day smoker Alcohol intake: current Do You Feel Safe in your Home?: Yes Lack of Transportation: No Lack of Food: Sometimes True Current Housing: I Have Housing Concerned About Future Housing: No Difficulty Paying Gas/Electric Bills: YES Difficulty Paying for Meds: No Currently Unemployed: No Education: High School Diploma/GED Difficulty w/ Childcare or Family Care: No Comments At the time of my signature, I reviewed and agree with the nursing past medical, surgical, social, and family history. There is no relevant family history pertinent to the patient complaint. Exam Narrative: General: Well-developed, well nourished, in no apparent distress Head: Normocephalic, atraumatic. Cardio: Regular rate and rhythm, s1 and s2 normal, no murmur appreciated. Resp: Clear to auscultation bilaterally, no rhonchi, rales, wheezing or rubs. Extremities: No deformity, no edema, no cyanosis, capillary refill less than 2 seconds, peripheral pulses palpable and strong. Integumentary: [place], warm, and dry, intact without lesion, red nonraised rash on the face with some mild swelling around the periorbits, no erythema, and non tender to palpation. Some mild scaling noted of the skin Course Course Emergency Course: Portions of this record may have been created with voice recognition software. Level of Care: Express Care Visit Vital Signs Vital signs: Vital Signs Temperature 36.6 C 05/20/24 12:25 Pulse Rate 82 05/20/24 12:25 Respiratory Rate 16 05/20/24 12:25 Blood Pressure 145/78 H 05/20/24 12:25 Pulse Oximetry 94 05/20/24 12:25 Oxygen Delivery Room Air 05/20/24 12:25 Temperature 36.6 C 05/20/24 12:25 Pulse Rate 82 05/20/24 12:25 Respiratory Rate 16 05/20/24 12:25 Blood Pressure 145/78 H 05/20/24 12:25 Pulse Oximetry 94 05/20/24 12:25 Oxygen Delivery Room Air 05/20/24 12:25 Vital signs reviewed MDM - Skin/Abscess/Foreign Bdy MDM Narrative Medical decision making narrative: At the time of visit patient is resting comfortably on the exam table. Patient appears to be nontoxic. Blood pressure: Manual blood pressure was obtained and it was 145/78 in the cl inic today Plan: I suspect patient has hypertension and acute rash. Supportive measures were discussed with the patient and they voiced understanding discharge instructions and agrees to treatment plan. Return precautions reviewed Differential Diagnosis Differential diagnosis: Likely abscess of skin or subcutaneous tissue, viral exanthem, dermatophytosis, urticaria, herpes zoster, allergic reaction to drug, cellulitis, eczema, insect bites, impetigo, contact dermatitis and other (Hypertension) Discharge Plan Discharge Clinical Impression: Rash and nonspecific skin eruption Hypertension Qualifiers: Hypertension type: unspecified Qualified Code(s): I10 - Essential (primary) hypertension Patient Disposition: Home, Self-Care Condition: Stable Instructions: Antibiotic Form, Acute Rash (ED), Hypertension (ED) Additional Instructions: May apply cool compresses to the affected area to help alleviate May take Benadryl 25mg-50mg every 6 hours as needed for swelling/itching Moisturize face using Cetaphil, Lubriderm, or Aquaphor lotion twice daily If swelling and rash persists/worsens recommend follow-up with PCP or go to the emergency room You have an elevated blood pressure in the clinic today and I recommend follow- up with primary care physician to have this reevaluated within the next week if symptoms persist. [place] [employer] guidelines state that normal blood pressure is 120/80 or less. Anything over 120/80 is considered elevated and should be monitored. You may need to decrease you salt intake and eat a heart healthy diet to help lower you blood pressure, other treatments would include decreasing stress, weight loss, stop caffeine, and quit smoking. Your primary care provider can determine whether you need to start antihypertensive medications. Untreated high blood pressure can cause dizziness, headaches, visual changes, blindness, kidney failure, stroke, heart attack, and male impotence. Patient Language: [place] Citizen Prescriptions: No Action duloxetine 60 mg capsule,delayed release(DR/EC) 60 mg PO DAILY Qty: 30 11RF gabapentin 300 mg capsule 300 mg PO BID Qty: 60 11RF naproxen 500 mg tablet 500 mg PO BID PRN (Reason: pain) Qty: 60 11RF oxycodone 5 mg tablet 5 mg PO BID PRN (Reason: pain) Qty: 30 0RF tramadol 50 mg tablet PO docusate sodium 100 mg capsule PO losartan 100 mg tablet 100 mg PO DAILY Qty: 30 8RF hydrochlorothiazide 25 mg tablet 25 mg PO DAILY Qty: 90 0RF omeprazole 20 mg capsule,delayed release(DR/EC) 20 mg PO DAILY Qty: 60 5RF ferrous sulfate 325 mg (65 mg iron) tablet,delayed release (DR/EC) 325 mg PO DAILY Qty: 60 3RF Follow-up/Referrals: Clive Powell MD [Primary Care Provider] - Time of Disposition: 12:47 Quality NIHSS Nursing Documentation ED NIHSS nursing documentation: reviewed/agree
== END 2024-05-20 12:50 | disposition home or self-care (01) ==
PROVIDERS: Emergency Provider Nurse Practitioner Family; PCP Family Medicine Adolescent Medicine
DX: R21 Rash and other nonspecific skin eruption (principal); I10 Essential (primary) hypertension; F17.200 Nicotine dependence, unspecified, uncomplicated
CPT/HCPCS: 99211; G0463